=== PATIENT | male | born 1935 | race African-American/Black ===

== ENCOUNTER 2018-09-01 14:32 | Emergency (ER) | payer MEDICARE ==
[~2018-09-01] VITALS: Ht 167.6 cm; Wt 70.0 kg
[~2018-09-01 14:32] MED LIST: METF500T; SIMV20TA2; TAMS-11
[2018-09-01 17:55] LABS: CLARITY URINE CLOUDY (CLEAR); COLOR URINE YELLOW (YELLOW); KETONES URINE NEGATIVE (NEGATIVE); LEUKOCYTE ESTERASE URINE NEGATIVE (NEGATIVE); NITRITE URINE NEGATIVE (NEGATIVE); OCCULT BLOOD URINE NEGATIVE (NEGATIVE); PROTEIN URINE NEGATIVE (NEGATIVE); SPECIFIC GRAVITY URINE 1.018 (1.005-1.030)
[2018-09-01 20:47] LABS: BASOPHILS % 0.8 % (0.0-2.0); EOSINOPHILS % 5.1 % (0.0-5.0); HEMATOCRIT. 35.9 % (42.0-52.0); HEMOGLOBIN. 11.5 g/dL (14.0-18.0); LYMPHOCYTES % 22.3 % (20.0-50.0); MEAN CORPUSCULAR HEMOGLOBIN 27.1 pg (28.0-32.0); MEAN CORPUSCULAR VOLUME 84.2 fL (80.0-94.0); MONOCYTES % 10.5 % (2.0-8.0); NEUTROPHILS % 61.3 % (40.0-76.0); PLATELET 261 x1000/uL (130-400); RED BLOOD CELL COUNT 4.26 mill/uL (4.7-6.1); RED CELL DISTRIBUTION WIDTH 16.8 % (11.6-14.6)
[2018-09-01 20:53] LABS: CHLORIDE 110 mEq/L (98-107)
[2018-09-01] MEDS ORDERED: FUROSEMIDE 20MG TABLET PO ONE (22:00)
[2018-09-01 22:50] VITALS: BP 133/67
== END 2018-09-01 22:50 | disposition home or self-care (01) ==
LOC: EDBD 14:32 → ER 14:32
DX: R60.0 Localized edema (principal); R07.89 Other chest pain; F03.90 Unspecified dementia, unspecified severity, without behavioral disturbance, psychotic disturbance, mood disturbance, and anxiety; E11.9 Type 2 diabetes mellitus without complications; I10 Essential (primary) hypertension; Z79.899 Other long term (current) drug therapy
CPT/HCPCS: 36415; 71045; 82962; 83880; 84484; 93005; 99284

== ENCOUNTER 2019-02-01 11:16 | Emergency (ER) | payer BC, MEDICARE ==
[~2019-02-01] VITALS: Ht 177.8 cm; Wt 76.0 kg
[2019-02-01 12:31] LABS: BASOPHILS % 0.7 % (0.0-2.0); EOSINOPHILS % 2.9 % (0.0-5.0); HEMATOCRIT. 39.6 % (42.0-52.0); HEMOGLOBIN. 12.8 g/dL (14.0-18.0); LYMPHOCYTES % 19.2 % (20.0-50.0); MEAN CORPUSCULAR HEMOGLOBIN 25.6 pg (28.0-32.0); MEAN CORPUSCULAR VOLUME 79.5 fL (80.0-94.0); MEAN PLATELET VOLUME 8.3 fl (7.4-10.4); NEUTROPHILS % 70.2 % (40.0-76.0); PLATELET 251 x1000/uL (130-400); RED BLOOD CELL COUNT 4.98 mill/uL (4.7-6.1); RED CELL DISTRIBUTION WIDTH 15.4 % (11.6-14.6)
[2019-02-01 12:32] LABS: CHLORIDE 108 mEq/L (98-107)
[2019-02-01] MEDS ORDERED: MAGNESIUM 2 G PREMIX 50 ML IV ONE (13:15)
[2019-02-01 14:46] LABS: CLARITY URINE CLEAR (CLEAR); COLOR URINE YELLOW (YELLOW); KETONES URINE TRACE (NEGATIVE); LEUKOCYTE ESTERASE URINE NEGATIVE (NEGATIVE); NITRITE URINE NEGATIVE (NEGATIVE); OCCULT BLOOD URINE NEGATIVE (NEGATIVE); PROTEIN URINE 1+ (NEGATIVE); SPECIFIC GRAVITY URINE 1.019 (1.005-1.030)
[2019-02-01] MEDS ORDERED: OLANZAPINE 2.5MG TABLET PO SCH (15:45)
[2019-02-01 16:10] VITALS: BP 110/64
== END 2019-02-02 16:40 | disposition short-term general hospital (02) ==
LOC: ER 11:16 → EDBEDREQ 11:52 → CANBEDREQ 21:05 → ER 02-02 16:40
DX: R55 Syncope and collapse (principal); I45.81 Long QT syndrome; I50.9 Heart failure, unspecified; I11.0 Hypertensive heart disease with heart failure; W22.8XXA Striking against or struck by other objects, initial encounter; Y93.89 Activity, other specified; Y92.89 Other specified places as the place of occurrence of the external cause; D50.9 Iron deficiency anemia, unspecified; E11.9 Type 2 diabetes mellitus without complications; F03.90 Unspecified dementia, unspecified severity, without behavioral disturbance, psychotic disturbance, mood disturbance, and anxiety; S09.8XXA Other specified injuries of head, initial encounter
CPT/HCPCS: 36415; 70450; 71045; 80053; 81003; 83735; 83880; 84484; 85025; 93005; 96365; 96366; 99285; J3475

== ENCOUNTER 2019-03-19 14:07 | Inpatient (IN) | payer MEDICARE ==
[~2019-03-19] VITALS: Ht 175.3 cm; Wt 71.7 kg
[2019-03-19] MEDS ORDERED: SODIUM CHLORIDE 0.9% 1,000 ML IV ONE (14:29)
[2019-03-19] MEDS ORDERED: VANCOMYCIN 1 G PREMIX 200 ML IV SCH (15:15)
[2019-03-19] MEDS ORDERED: PIPERACILLIN/TAZ 3.375G PREMIX 50 ML IV ONE (15:15)
[2019-03-19 15:18] LABS: BG BASE EXCESS -3.8 mmol/L (-2.0-2.0); BG CARBOXYHEMOGLOBIN 0.5 % (0.5-1.5); BG DEOXYHEMOGLOBIN 2.3 % (0.0-5.0); BG FRACTION INSPIRED OXYGEN 28; BG HCO3 ACT 18.4 mmol/L (22.0-26.0); BG METHEMOGLOBIN 0.4 % (0.0-1.5); BG OXYGEN SATURATION 97.7 % (92.0-98.5); BG OXYHEMOGLOBIN 96.8 % (94.0-97.0); BG PCO2 26.2 mmHg (35.0-45.0); BG PH 7.464 (7.350-7.450); BG PO2 99.9 mmHg (75.0-100.0); BG SAMPLE SITE RIGHT RADIAL; BG TOTAL HEMOGLOBIN 13.2 g/dL (12.0-18.0); BG VENT MODE NASAL CANNULA
[2019-03-19 15:42] LABS: BASOPHILS % 0.5 % (0.0-2.0); EOSINOPHILS % 0.4 % (0.0-5.0); HEMATOCRIT. 39.2 % (42.0-52.0); HEMOGLOBIN. 12.5 g/dL (14.0-18.0); LYMPHOCYTES % 7.1 % (20.0-50.0); MEAN CORPUSCULAR HEMOGLOBIN 24.5 pg (28.0-32.0); MEAN CORPUSCULAR VOLUME 76.5 fL (80.0-94.0); MEAN PLATELET VOLUME 9.4 fl (7.4-10.4); MONOCYTES % 4.1 % (2.0-8.0); NEUTROPHILS % 87.9 % (40.0-76.0); PLATELET 175 x1000/uL (130-400); RED BLOOD CELL COUNT 5.12 mill/uL (4.7-6.1); RED CELL DISTRIBUTION WIDTH 16.6 % (11.6-14.6)
[2019-03-19 15:42] LABS: CLARITY URINE TURBID (CLEAR); KETONES URINE TRACE (NEGATIVE); LEUKOCYTE ESTERASE URINE 3+ (NEGATIVE); NITRITE URINE NEGATIVE (NEGATIVE); OCCULT BLOOD URINE 3+ (NEGATIVE); PH URINE 6.5 (4.5-8.0); PROTEIN URINE 2+ (NEGATIVE); SPECIFIC GRAVITY URINE 1.015 (1.005-1.030)
[2019-03-19 15:46] LABS: CHLORIDE 115 mEq/L (98-107)
[2019-03-19 15:52] LABS: ETHANOL BLOOD < 10 mg/dL
[2019-03-19 15:55] LABS: LDL CHOLESTEROL 34 mg/dL (5-100)
[2019-03-19 15:56] LABS: D-DIMER 11.17 mg/L FEU (<0.50); INR 1.1
[2019-03-19 16:01] LABS: COLOR URINE DARK YELLOW (YELLOW)
[2019-03-19 16:14] LABS: CREATINE KINASE 1372 IU/L (39-308)
[2019-03-19 16:30] LABS: *AMPHETAMINES SCREEN URINE NEGATIVE (NEGATIVE)
[2019-03-19 16:31] LABS: *BARBITURATES SCREEN URINE NEGATIVE (NEGATIVE); *BENZODIAZEPINES SCREEN URINE NEGATIVE (NEGATIVE); *COCAINE SCREEN URINE NEGATIVE (NEGATIVE); CANNABINOID URINE SCREEN NEGATIVE (NEGATIVE); METHADONE URINE SCREEN NEGATIVE (NEGATIVE); OPIATES URINE SCREEN NEGATIVE (NEGATIVE); PHENCYCLIDINE URINE SCREEN NEGATIVE (NEGATIVE)
[2019-03-19] MEDS ORDERED: DIPHENHYDRAMINE 50MG/ML VIAL IV PRN (16:45)
[2019-03-19] MEDS ORDERED: ACETAMINOPHEN 650MG SUPP PR PRN (16:45)
[2019-03-19] MEDS ORDERED: MAGNESIUM/ALUMINUM HYDROXIDE/SIMETHICONE 30ML UDC PO PRN (16:45)
[2019-03-19] MEDS ORDERED: CLONIDINE 0.1MG TABLET PO PRN (16:45)
[2019-03-19] MEDS ORDERED: NA PHOS,M-B/NA PHOS,DI-BA ENEMA 118ML PR PRN (16:45)
[2019-03-19] MEDS ORDERED: HYDROCODONE/ACETAMINOPHEN 5/325MG TABLET PO PRN (16:45)
[2019-03-19] MEDS ORDERED: ONDANSETRON HCL 4MG/2ML INJ IV PRN (16:45)
[2019-03-19] MEDS ORDERED: GUAIFENESIN 200MG/10ML SUGAR FREE UDC PO PRN (16:45)
[2019-03-19] MEDS ORDERED: IPRATROPIUM/ALBUTEROL 0.5-3(2.5)MG/3ML NEB INH PRN (16:45)
[2019-03-19] MEDS ORDERED: DOCUSATE SODIUM 100MG CAPSULE PO PRN (16:45)
[2019-03-19] MEDS ORDERED: ACETAMINOPHEN 650MG/20.3ML UDC GT PRN (16:45)
[2019-03-19] MEDS ORDERED: PIPERACILLIN/TAZ 3.375G PREMIX 50 ML IV SCH (16:45)
[2019-03-19 18:30] VITALS: BP 107/62
[2019-03-19] MEDS ORDERED: DEXTROSE 50% WATER 50ML SYRINGE IV PRN (18:30)
[2019-03-19 18:40] VITALS: BP 129/68
[2019-03-19 20:00] VITALS: BP 118/61
[2019-03-19] MEDS: BLOOD SUGAR DIAGNOSTIC STRIP TEST SCH (21:00)
[2019-03-19] MEDS: INSULIN LISPRO 100 UNITS/ML SUBCUT SCH (21:00)
[2019-03-19] MEDS: ENOXAPARIN 30MG/0.3ML SYR SUBCUT SCH (21:09)
[2019-03-19 22:01] VITALS: BP 102/40
[2019-03-19] MEDS: SODIUM CHLORIDE 0.9% INJ 3ML FLUSH IVF SCH (22:17)
[2019-03-19] MEDS: SODIUM CHLORIDE 0.9% 1,000 ML IV SCH (22:17)
[2019-03-19] MEDS: PIPERACILLIN/TAZ 2.25G PREMIX 50 ML IV SCH (23:49)
[2019-03-20] VITALS (18 sets, daily range): BP systolic 65–140; BP diastolic 32–88
[2019-03-20] MEDS ORDERED: DILTIAZEM HCL 5MG/ML 5ML VIAL IV NR ×2 (02:15→18:30)
[2019-03-20] MEDS ORDERED: DIGOXIN 500MCG/2ML AMP IV NR (02:15)
[2019-03-20] MEDS: PIPERACILLIN/TAZ 2.25G PREMIX 50 ML IV SCH ×3 (03:28→18:00)
[2019-03-20] MEDS: SODIUM CHLORIDE 0.9% 1,000 ML IV SCH (03:29)
[2019-03-20] MEDS: INSULIN LISPRO 100 UNITS/ML SUBCUT SCH ×4 (06:30→21:00)
[2019-03-20] MEDS: BLOOD SUGAR DIAGNOSTIC STRIP TEST SCH ×4 (06:30→21:19)
[2019-03-20] MEDS: SODIUM CHLORIDE 0.9% INJ 3ML FLUSH IVF SCH ×3 (06:31→21:55)
[2019-03-20] MEDS ORDERED: SODIUM CHLORIDE 0.45% 1,000 ML IV SCH (09:15)
[2019-03-20 12:33] LABS: BASOPHILS % 0.2 % (0.0-2.0); EOSINOPHILS % 0.8 % (0.0-5.0); HEMATOCRIT. 34.7 % (42.0-52.0); HEMOGLOBIN. 11.1 g/dL (14.0-18.0); MEAN CORPUSCULAR HEMOGLOBIN 24.6 pg (28.0-32.0); MEAN CORPUSCULAR VOLUME 77.3 fL (80.0-94.0); MEAN PLATELET VOLUME 8.9 fl (7.4-10.4); MONOCYTES % 4.7 % (2.0-8.0); NEUTROPHILS % 86.3 % (40.0-76.0); PLATELET 151 x1000/uL (130-400); RED BLOOD CELL COUNT 4.49 mill/uL (4.7-6.1); RED CELL DISTRIBUTION WIDTH 16.7 % (11.6-14.6)
[2019-03-20 12:40] LABS: CHLORIDE 123 mEq/L (98-107)
[2019-03-20 12:48] LABS: PHOSPHORUS 3.8 mg/dL (2.5-4.9)
[2019-03-20 12:49] LABS: HDL CHOLESTEROL 13 mg/dL (40-59); LDL CHOLESTEROL 32 mg/dL (5-100)
[2019-03-20] MEDS ORDERED: DIGOXIN 500MCG/2ML AMP IV SCH (18:30)
[2019-03-20] MEDS ORDERED: DILTIAZEM HCL 30MG TABLET PO SCH (18:30)
[2019-03-20] MEDS: DEXT 5%/0.2% NACL 1,000 ML IV SCH (18:44)
[2019-03-20 18:49] LABS: BG BASE EXCESS -8.8 mmol/L (-2.0-2.0); BG CARBOXYHEMOGLOBIN 0.2 % (0.5-1.5); BG DEOXYHEMOGLOBIN 0.2 % (0.0-5.0); BG FRACTION INSPIRED OXYGEN 100; BG HCO3 ACT 12.3 mmol/L (22.0-26.0); BG METHEMOGLOBIN 0.4 % (0.0-1.5); BG OXYGEN SATURATION 99.8 % (92.0-98.5); BG OXYHEMOGLOBIN 99.2 % (94.0-97.0); BG PCO2 17.1 mmHg (35.0-45.0); BG PH 7.476 (7.350-7.450); BG PO2 462.7 mmHg (75.0-100.0); BG SAMPLE SITE LEFT BRACHIAL; BG TOTAL HEMOGLOBIN 11.9 g/dL (12.0-18.0); BG VENT MODE MASK - NRB
[2019-03-20 19:00] LABS: BASOPHILS % 0.5 % (0.0-2.0); EOSINOPHILS % 0.5 % (0.0-5.0); HEMATOCRIT. 35.3 % (42.0-52.0); HEMOGLOBIN. 11.2 g/dL (14.0-18.0); LYMPHOCYTES % 10.8 % (20.0-50.0); MEAN CORPUSCULAR HEMOGLOBIN 24.6 pg (28.0-32.0); MEAN CORPUSCULAR VOLUME 77.4 fL (80.0-94.0); MONOCYTES % 1.1 % (2.0-8.0); NEUTROPHILS % 87.1 % (40.0-76.0); PLATELET 144 x1000/uL (130-400); RED BLOOD CELL COUNT 4.56 mill/uL (4.7-6.1); RED CELL DISTRIBUTION WIDTH 17.6 % (11.6-14.6)
[2019-03-20] MEDS ORDERED: LORAZEPAM 2MG/ML CPJ IV NR (19:30)
[2019-03-20] MEDS ORDERED: LABETALOL 5MG/ML SYR 20 MG/4 ML SYRINGE IV NR (19:30)
[2019-03-20] MEDS: LEVETIRACETAM 500 MG in SODIUM CHLORIDE 0.9% 100 ML IV SCH (19:46)
[2019-03-20] MEDS: ENOXAPARIN 30MG/0.3ML SYR SUBCUT SCH (21:19)
[2019-03-20 21:55] LABS: BG BASE EXCESS -7.8 mmol/L (-2.0-2.0); BG CARBOXYHEMOGLOBIN 0.3 % (0.5-1.5); BG DEOXYHEMOGLOBIN 0.5 % (0.0-5.0); BG FRACTION INSPIRED OXYGEN 100; BG HCO3 ACT 13.8 mmol/L (22.0-26.0); BG METHEMOGLOBIN 0.7 % (0.0-1.5); BG OXYGEN SATURATION 99.5 % (92.0-98.5); BG OXYHEMOGLOBIN 98.5 % (94.0-97.0); BG PCO2 19.3 mmHg (35.0-45.0); BG PH 7.472 (7.350-7.450); BG PO2 373.5 mmHg (75.0-100.0); BG SAMPLE SITE RIGHT BRACHIAL; BG TOTAL HEMOGLOBIN 11.4 g/dL (12.0-18.0); BG VENT MODE MASK - NRB
[2019-03-20] MEDS ORDERED: LORAZEPAM 2MG/ML CPJ IV PRN (23:00)
[2019-03-21] VITALS (20 sets, daily range): BP systolic 86–153; BP diastolic 25–71
[2019-03-21] MEDS ORDERED: DILTIAZEM HCL 30MG TABLET PO SCH
[2019-03-21] MEDS: DILTIAZEM HCL 5MG/ML 5ML VIAL IV SCH ×5 (00:10→23:55)
[2019-03-21] MEDS: PIPERACILLIN/TAZ 2.25G PREMIX 50 ML IV SCH ×5 (00:47→23:54)
[2019-03-21] MEDS: DEXT 5%/0.2% NACL 1,000 ML IV SCH ×4 (04:16→22:15)
[2019-03-21] MEDS: SODIUM CHLORIDE 0.9% INJ 3ML FLUSH IVF SCH ×3 (06:25→21:35)
[2019-03-21] MEDS: BLOOD SUGAR DIAGNOSTIC STRIP TEST SCH ×4 (07:30→21:35)
[2019-03-21 07:35] LABS: HEMATOCRIT. 29.5 % (42.0-52.0); HEMOGLOBIN. 9.4 g/dL (14.0-18.0); MEAN CORPUSCULAR HEMOGLOBIN 24.8 pg (28.0-32.0); MEAN CORPUSCULAR VOLUME 77.8 fL (80.0-94.0); MEAN PLATELET VOLUME 9.5 fl (7.4-10.4); PLATELET 123 x1000/uL (130-400); RED BLOOD CELL COUNT 3.79 mill/uL (4.7-6.1); RED CELL DISTRIBUTION WIDTH 17.1 % (11.6-14.6)
[2019-03-21 09:28] LABS: CHLORIDE 123 mEq/L (98-107)
[2019-03-21] MEDS: LEVETIRACETAM 500 MG in SODIUM CHLORIDE 0.9% 100 ML IV SCH ×2 (09:41→21:35)
[2019-03-21] MEDS: INSULIN LISPRO 100 UNITS/ML SUBCUT SCH ×4 (09:42→21:00)
[2019-03-21 09:44] LABS: PHOSPHORUS 3.6 mg/dL (2.5-4.9)
[2019-03-21 09:47] LABS: CREATINE KINASE 336 IU/L (39-308)
[2019-03-21] MEDS ORDERED: VANCOMYCIN 1500MG in DEXTROSE 5% WATER 250ML IV SCH (14:00)
[2019-03-21 15:26] LABS: PLATELET ESTIMATE DECREASED
[2019-03-21] MEDS: ACETAMINOPHEN 325MG TABLET PO PRN (17:57)
[2019-03-21] MEDS: ENOXAPARIN 30MG/0.3ML SYR SUBCUT SCH (20:44)
[2019-03-22] VITALS (15 sets, daily range): BP systolic 96–178; BP diastolic 32–107
[2019-03-22] MEDS: SODIUM CHLORIDE 0.9% INJ 3ML FLUSH IVF SCH ×3 (05:10→20:42)
[2019-03-22] MEDS: PIPERACILLIN/TAZ 2.25G PREMIX 50 ML IV SCH ×4 (05:10→23:10)
[2019-03-22] MEDS: DILTIAZEM HCL 5MG/ML 5ML VIAL IV SCH ×4 (05:19→23:07)
[2019-03-22 07:28] LABS: BASOPHILS % 0.3 % (0.0-2.0); EOSINOPHILS % 1.2 % (0.0-5.0); HEMATOCRIT. 28.4 % (42.0-52.0); LYMPHOCYTES % 8.2 % (20.0-50.0); MEAN CORPUSCULAR HEMOGLOBIN 24.1 pg (28.0-32.0); MEAN CORPUSCULAR VOLUME 76.3 fL (80.0-94.0); MONOCYTES % 4.6 % (2.0-8.0); NEUTROPHILS % 85.7 % (40.0-76.0); PLATELET 132 x1000/uL (130-400); RED BLOOD CELL COUNT 3.72 mill/uL (4.7-6.1); RED CELL DISTRIBUTION WIDTH 16.8 % (11.6-14.6)
[2019-03-22] MEDS: BLOOD SUGAR DIAGNOSTIC STRIP TEST SCH ×4 (07:29→20:41)
[2019-03-22] MEDS: INSULIN LISPRO 100 UNITS/ML SUBCUT SCH ×4 (07:30→20:41)
[2019-03-22 07:47] LABS: PHOSPHORUS 2.5 mg/dL (2.5-4.9)
[2019-03-22] MEDS: LEVETIRACETAM 500 MG in SODIUM CHLORIDE 0.9% 100 ML IV SCH (08:37)
[2019-03-22] MEDS: DEXT 5%/0.2% NACL 1,000 ML IV SCH (09:17)
[2019-03-22] MEDS ORDERED: ENOXAPARIN 80MG/0.8ML SYR SUBCUT NR (11:15)
[2019-03-22] MEDS ORDERED: LEVETIRACETAM 500MG TABLET PO SCH (11:15)
[2019-03-22 11:18] LABS: T4 FREE 1.28 ng/dL (0.76-1.46)
[2019-03-22] MEDS ORDERED: VANCOMYCIN 1 G PREMIX 200 ML IV SCH (14:00)
[2019-03-22] MEDS: VANCOMYCIN 1 G PREMIX 200 ML IV SCH (15:32)
[2019-03-22] MEDS ORDERED: LEVOFLOXACIN 500MG PREMIX 100 ML IV SCH (17:00)
[2019-03-22] MEDS: APIXABAN 2.5 MG TABLET PO SCH (17:49)
[2019-03-22] MEDS: LEVETIRACETAM 500MG TABLET PO SCH (17:50)
[2019-03-22] MEDS: ENOXAPARIN 30MG/0.3ML SYR SUBCUT SCH (20:40)
[2019-03-22 23:47] LABS: CREATINE KINASE 185 IU/L (39-308); CREATINE KINASE MB FRACTION < 1.0 ng/mL (0.5-3.6)
[2019-03-23] VITALS (11 sets, daily range): BP systolic 99–162; BP diastolic 50–98
[2019-03-23] MEDS: DEXT 5%/0.2% NACL 1,000 ML IV SCH ×3 (02:49→17:41)
[2019-03-23] MEDS: DILTIAZEM HCL 5MG/ML 5ML VIAL IV SCH ×3 (05:36→18:00)
[2019-03-23] MEDS: PIPERACILLIN/TAZ 2.25G PREMIX 50 ML IV SCH ×3 (05:37→18:39)
[2019-03-23] MEDS: SODIUM CHLORIDE 0.9% INJ 3ML FLUSH IVF SCH ×3 (05:37→21:46)
[2019-03-23 07:15] LABS: BASOPHILS % 0.4 % (0.0-2.0); EOSINOPHILS % 1.6 % (0.0-5.0); HEMATOCRIT. 29.9 % (42.0-52.0); HEMOGLOBIN. 9.3 g/dL (14.0-18.0); LYMPHOCYTES % 9.9 % (20.0-50.0); MEAN CORPUSCULAR HEMOGLOBIN 23.9 pg (28.0-32.0); MEAN CORPUSCULAR VOLUME 76.4 fL (80.0-94.0); MEAN PLATELET VOLUME 9.7 fl (7.4-10.4); MONOCYTES % 6.7 % (2.0-8.0); NEUTROPHILS % 81.4 % (40.0-76.0); PLATELET 153 x1000/uL (130-400); RED BLOOD CELL COUNT 3.91 mill/uL (4.7-6.1); RED CELL DISTRIBUTION WIDTH 16.9 % (11.6-14.6)
[2019-03-23 07:27] LABS: CHLORIDE 120 mEq/L (98-107)
[2019-03-23 07:33] LABS: PHOSPHORUS 2.4 mg/dL (2.5-4.9)
[2019-03-23 07:36] LABS: CREATINE KINASE 119 IU/L (39-308)
[2019-03-23 07:38] LABS: CREATINE KINASE MB FRACTION < 1.0 ng/mL (0.5-3.6)
[2019-03-23] MEDS: INSULIN LISPRO 100 UNITS/ML SUBCUT SCH ×4 (08:00→21:00)
[2019-03-23] MEDS: VANCOMYCIN 1 G PREMIX 200 ML IV SCH (08:29)
[2019-03-23] MEDS: BLOOD SUGAR DIAGNOSTIC STRIP TEST SCH ×4 (08:29→21:00)
[2019-03-23] MEDS: APIXABAN 2.5 MG TABLET PO SCH ×2 (08:29→17:48)
[2019-03-23] MEDS: LEVETIRACETAM 500MG TABLET PO SCH ×2 (08:29→17:45)
[2019-03-23] MEDS: ACETAMINOPHEN 325MG TABLET PO PRN (15:21)
[2019-03-23] MEDS ORDERED: POTASSIUM PHOS,M-BASIC-D-BASIC 15 MMOL in DEXT 5% WATER 245 ML IV SCH (15:30)
[2019-03-23] MEDS: LEVOFLOXACIN 250MG PREMIX 50 ML IV SCH (17:45)
[2019-03-23] MEDS ORDERED: DILTIAZEM HCL 300MG CAPSULE SR 24HR PO SCH (22:00)
[2019-03-23] MEDS: DILTIAZEM HCL 30MG TABLET PO SCH (23:35)
[2019-03-24] MEDS: PIPERACILLIN/TAZ 3.375G PREMIX 50 ML IV SCH ×4 (00:20→23:21)
[2019-03-24] MEDS: VANCOMYCIN 1 G PREMIX 200 ML IV SCH ×2 (01:28→17:25)
[2019-03-24 04:00] VITALS: BP 114/74
[2019-03-24] MEDS: SODIUM CHLORIDE 0.9% INJ 3ML FLUSH IVF SCH ×3 (05:56→21:15)
[2019-03-24] MEDS: BLOOD SUGAR DIAGNOSTIC STRIP TEST SCH ×4 (06:24→21:00)
[2019-03-24] MEDS: DILTIAZEM HCL 30MG TABLET PO SCH ×3 (06:27→21:15)
[2019-03-24] MEDS: INSULIN LISPRO 100 UNITS/ML SUBCUT SCH ×4 (07:50→21:00)
[2019-03-24 08:00] VITALS: BP 131/77
[2019-03-24 08:05] LABS: BASOPHILS % 0.3 % (0.0-2.0); EOSINOPHILS % 2.5 % (0.0-5.0); HEMATOCRIT. 30.4 % (42.0-52.0); HEMOGLOBIN. 9.5 g/dL (14.0-18.0); LYMPHOCYTES % 9.3 % (20.0-50.0); MEAN CORPUSCULAR HEMOGLOBIN 23.9 pg (28.0-32.0); MEAN CORPUSCULAR VOLUME 76.5 fL (80.0-94.0); MONOCYTES % 5.4 % (2.0-8.0); NEUTROPHILS % 82.5 % (40.0-76.0); PLATELET 188 x1000/uL (130-400); RED BLOOD CELL COUNT 3.97 mill/uL (4.7-6.1); RED CELL DISTRIBUTION WIDTH 17.2 % (11.6-14.6)
[2019-03-24 08:14] LABS: CHLORIDE 117 mEq/L (98-107)
[2019-03-24 08:37] LABS: PHOSPHORUS 2.4 mg/dL (2.5-4.9)
[2019-03-24] MEDS: LEVETIRACETAM 500MG TABLET PO SCH ×2 (10:07→17:05)
[2019-03-24] MEDS: APIXABAN 2.5 MG TABLET PO SCH ×2 (10:07→17:06)
[2019-03-24] MEDS ORDERED: LIDOCAINE HCL 1% 20ML VIAL (Pyxis) INJ ONE (11:24)
[2019-03-24 12:00] VITALS: BP 119/55
[2019-03-24] MEDS: DEXT 5%/0.2% NACL 1,000 ML IV SCH ×2 (13:00→23:21)
[2019-03-24] MEDS ORDERED: POTASSIUM PHOS,M-BASIC-D-BASIC 20 MMOL in DEXT 5% WATER 243.3333 ML IV NR (15:00)
[2019-03-24 16:00] VITALS: BP 145/75
[2019-03-24] MEDS: LEVOFLOXACIN 250MG PREMIX 50 ML IV SCH (17:08)
[2019-03-24 20:00] VITALS: BP 140/66
[2019-03-25] VITALS: BP 141/51
[2019-03-25 04:00] VITALS: BP 152/50
[2019-03-25] MEDS: SODIUM CHLORIDE 0.9% INJ 3ML FLUSH IVF SCH ×3 (05:43→21:58)
[2019-03-25] MEDS: DILTIAZEM HCL 30MG TABLET PO SCH ×3 (05:43→21:59)
[2019-03-25 07:29] LABS: BASOPHILS % 0.1 % (0.0-2.0); EOSINOPHILS % 2.7 % (0.0-5.0); HEMATOCRIT. 29.4 % (42.0-52.0); HEMOGLOBIN. 9.3 g/dL (14.0-18.0); LYMPHOCYTES % 10.1 % (20.0-50.0); MEAN CORPUSCULAR HEMOGLOBIN 23.8 pg (28.0-32.0); MEAN CORPUSCULAR VOLUME 75.4 fL (80.0-94.0); MEAN PLATELET VOLUME 9.6 fl (7.4-10.4); MONOCYTES % 5.3 % (2.0-8.0); NEUTROPHILS % 81.8 % (40.0-76.0); PLATELET 240 x1000/uL (130-400); RED CELL DISTRIBUTION WIDTH 16.4 % (11.6-14.6)
[2019-03-25 07:40] LABS: CHLORIDE 114 mEq/L (98-107)
[2019-03-25] MEDS: INSULIN LISPRO 100 UNITS/ML SUBCUT SCH ×4 (07:50→21:00)
[2019-03-25 08:00] VITALS: BP 132/79
[2019-03-25 08:00] LABS: PHOSPHORUS 2.5 mg/dL (2.5-4.9)
[2019-03-25] MEDS: APIXABAN 2.5 MG TABLET PO SCH ×2 (08:05→17:24)
[2019-03-25] MEDS: LEVETIRACETAM 500MG TABLET PO SCH ×2 (08:05→17:25)
[2019-03-25] MEDS: PIPERACILLIN/TAZ 3.375G PREMIX 50 ML IV SCH ×2 (08:05→16:05)
[2019-03-25] MEDS: DEXT 5%/0.2% NACL 1,000 ML IV SCH (08:06)
[2019-03-25] MEDS: BLOOD SUGAR DIAGNOSTIC STRIP TEST SCH ×4 (08:06→21:58)
[2019-03-25 12:00] VITALS: BP 101/49
[2019-03-25] MEDS: VANCOMYCIN 1 G PREMIX 200 ML IV SCH (12:16)
[2019-03-25 16:00] VITALS: BP 136/48
[2019-03-25] MEDS: LEVOFLOXACIN 250MG PREMIX 50 ML IV SCH (17:25)
[2019-03-25 20:00] VITALS: BP 132/67
[2019-03-26] VITALS: BP 132/70
[2019-03-26] MEDS: PIPERACILLIN/TAZ 3.375G PREMIX 50 ML IV SCH ×3 (00:04→18:34)
[2019-03-26 04:00] VITALS: BP 147/69
[2019-03-26] MEDS: DILTIAZEM HCL 30MG TABLET PO SCH ×3 (06:32→22:40)
[2019-03-26] MEDS: BLOOD SUGAR DIAGNOSTIC STRIP TEST SCH ×4 (06:40→21:00)
[2019-03-26] MEDS: DEXT 5%/0.2% NACL 1,000 ML IV SCH (06:40)
[2019-03-26 06:45] LABS: BASOPHILS % 0.3 % (0.0-2.0); EOSINOPHILS % 2.2 % (0.0-5.0); HEMATOCRIT. 27.8 % (42.0-52.0); HEMOGLOBIN. 8.9 g/dL (14.0-18.0); LYMPHOCYTES % 9.9 % (20.0-50.0); MEAN PLATELET VOLUME 9.2 fl (7.4-10.4); MONOCYTES % 5.9 % (2.0-8.0); NEUTROPHILS % 81.7 % (40.0-76.0); PLATELET 285 x1000/uL (130-400); RED BLOOD CELL COUNT 3.71 mill/uL (4.7-6.1); RED CELL DISTRIBUTION WIDTH 16.7 % (11.6-14.6)
[2019-03-26 06:59] LABS: CHLORIDE 112 mEq/L (98-107)
[2019-03-26 07:10] LABS: PHOSPHORUS 2.8 mg/dL (2.5-4.9)
[2019-03-26 08:00] VITALS: BP 131/57
[2019-03-26] MEDS: LEVETIRACETAM 500MG TABLET PO SCH ×2 (08:43→18:34)
[2019-03-26] MEDS: APIXABAN 2.5 MG TABLET PO SCH ×2 (08:44→18:34)
[2019-03-26] MEDS: SODIUM CHLORIDE 0.9% INJ 3ML FLUSH IVF SCH ×3 (08:45→22:41)
[2019-03-26 12:00] VITALS: BP 111/53
[2019-03-26 16:00] VITALS: BP 125/65
[2019-03-26] MEDS: LEVOFLOXACIN 250MG PREMIX 50 ML IV SCH (19:43)
[2019-03-26 20:00] VITALS: BP 137/71
[2019-03-27] VITALS: BP 103/85
[2019-03-27] MEDS: DEXT 5%/0.2% NACL 1,000 ML IV SCH (01:05)
[2019-03-27 04:00] VITALS: BP 116/87
[2019-03-27] MEDS: BLOOD SUGAR DIAGNOSTIC STRIP TEST SCH ×3 (06:26→17:20)
[2019-03-27] MEDS: DILTIAZEM HCL 30MG TABLET PO SCH ×2 (06:26→15:25)
[2019-03-27] MEDS: SODIUM CHLORIDE 0.9% INJ 3ML FLUSH IVF SCH ×2 (06:26→14:13)
[2019-03-27] MEDS: INSULIN LISPRO 100 UNITS/ML SUBCUT SCH ×3 (07:43→17:50)
[2019-03-27 08:00] VITALS: BP 117/62
[2019-03-27] MEDS: LEVETIRACETAM 500MG TABLET PO SCH ×3 (08:52→17:00)
[2019-03-27] MEDS: APIXABAN 2.5 MG TABLET PO SCH ×3 (08:52→17:00)
[2019-03-27 13:41] LABS: BASOPHILS % 0.3 % (0.0-2.0); EOSINOPHILS % 1.7 % (0.0-5.0); HEMATOCRIT. 27.5 % (42.0-52.0); HEMOGLOBIN. 8.1 g/dL (14.0-18.0); LYMPHOCYTES % 8.7 % (20.0-50.0); MEAN CORPUSCULAR HEMOGLOBIN 24.1 pg (28.0-32.0); MEAN CORPUSCULAR VOLUME 82.1 fL (80.0-94.0); MEAN PLATELET VOLUME 9.8 fl (7.4-10.4); MONOCYTES % 6.3 % (2.0-8.0); PLATELET 306 x1000/uL (130-400); RED BLOOD CELL COUNT 3.35 mill/uL (4.7-6.1); RED CELL DISTRIBUTION WIDTH 17.8 % (11.6-14.6)
[2019-03-27 14:00] LABS: CHLORIDE 111 mEq/L (98-107)
[2019-03-27 14:05] LABS: PHOSPHORUS 2.8 mg/dL (2.5-4.9)
[2019-03-27 15:31] VITALS: BP 113/64
[2019-03-27 16:49] VITALS: BP 113/78
[2019-03-27] MEDS: LEVOFLOXACIN 250MG PREMIX 50 ML IV SCH (17:00)
[2019-03-27] MEDS ORDERED: APIX2.5T PO (22:03)
[2019-03-27] MEDS ORDERED: DILT300C35 PO (22:03)
[2019-03-27] MEDS ORDERED: KEPP500 PO (22:04)
== END 2019-03-27 17:55 | DRG 871 ==
LOC: ER 14:07 → 5EST 16:12 → EDBEDREQTM 16:15 → EDBEDREQ 16:15 → ENRESERV 16:57 → 6EST 03-23 18:43
PROVIDERS: ADMIT Family Medicine; ATTEND Family Medicine
PROC: 4A10X4Z Monitoring of Central Nervous Electrical Activity, External Approach (ICD-10-PCS; 2019-03-22)
PROC: 02HV33Z Insertion of Infusion Device into Superior Vena Cava, Percutaneous Approach (ICD-10-PCS; principal; 2019-03-24)
PROC: B518ZZA Fluoroscopy of Superior Vena Cava, Guidance (ICD-10-PCS; 2019-03-24)
PROC: B548ZZA Ultrasonography of Superior Vena Cava, Guidance (ICD-10-PCS; 2019-03-24)
DX: A41.51 Sepsis due to Escherichia coli [E. coli] (principal); N17.0 Acute kidney failure with tubular necrosis; E43 Unspecified severe protein-calorie malnutrition; I63.9 Cerebral infarction, unspecified; G93.40 Encephalopathy, unspecified; M62.82 Rhabdomyolysis; E87.0 Hyperosmolality and hypernatremia; N13.6 Pyonephrosis; J98.11 Atelectasis; E87.2 Acidosis; E87.3 Alkalosis; I82.411 Acute embolism and thrombosis of right femoral vein; I82.431 Acute embolism and thrombosis of right popliteal vein; I67.82 Cerebral ischemia; A41.81 Sepsis due to Enterococcus; R65.20 Severe sepsis without septic shock; E87.5 Hyperkalemia; E61.9 Deficiency of nutrient element, unspecified; J44.9 Chronic obstructive pulmonary disease, unspecified; R13.10 Dysphagia, unspecified; R47.02 Dysphasia; I12.9 Hypertensive chronic kidney disease with stage 1 through stage 4 chronic kidney disease, or unspecified chronic kidney disease; E11.22 Type 2 diabetes mellitus with diabetic chronic kidney disease; D64.9 Anemia, unspecified; C61 Malignant neoplasm of prostate; E87.6 Hypokalemia; I48.2 Chronic atrial fibrillation; I25.10 Atherosclerotic heart disease of native coronary artery without angina pectoris; R62.7 Adult failure to thrive; R56.9 Unspecified convulsions; F03.90 Unspecified dementia, unspecified severity, without behavioral disturbance, psychotic disturbance, mood disturbance, and anxiety; N18.2 Chronic kidney disease, stage 2 (mild); I25.2 Old myocardial infarction; Z82.49 Family history of ischemic heart disease and other diseases of the circulatory system; Z74.01 Bed confinement status; Z83.3 Family history of diabetes mellitus; Z79.01 Long term (current) use of anticoagulants; Z68.23 Body mass index [BMI] 23.0-23.9, adult
CPT/HCPCS: 36415; 36573; 36600; 70551; 71045; 74176; 76770; 80048; 80061; 80202; 80305; 80320; 82375; 82550; 82553; 82805; 82962; 83036; 83605; 83721; 83735; 83880; 84100; 84145; 84439; 84443; 84484; 85379; 87077; 87186; 92610; 93005; 93306; 93880; 93970; 95816; 96361; 96365; 96366; 96375; 97162; 99291; C1725; J1160; J1650; J1815; J1953; J1956; J2060; J2543; J3370; J3490; J7030; J7040; J7050; J7060; A4315; G0480